=== PATIENT | female | born 1990 | race Caucasian/White ===

== ENCOUNTER 2017-02-05 17:03 | Inpatient (IN) | payer OTHER ==
[2017-02-05 19:51] VITALS: BMI 26.7
--- NOTE | 2017-02-05 20:41 | HP ---
CIWA Score - CIWA Score Nausea/Vomitin Muscle Tremors: 4-Moderate,w/Arms Extend Anxiety: 4-Mod. Anxious/Guarded Agitation: 4-Moderately Restless Paroxysmal Sweats: 3 Orientation: 2-Disoriented Date<2 days Tacttile Disturbances: 3-Moderate Itch/Numb/Burn Auditory Disturbances: 1-Very Mild Visual Disturbances: 1-Very Mild Sensitivity Headache: 4-Moderately Severe CIWA-Ar Total Score: 29 Admission ROS BHS - HPI Chief Complaint: C/O WITHDRAWAL SX'S. SEEKING DETOX TXMENT. Allergies/Adverse Reactions: Allergies Allergy/AdvReac Type Severity Reaction Status Date / Time No Known Allergies Allergy Verified 02/05/17 20:36 History of Present Illness: 26 Y.O FEMALE WITH ALCOHOLISM ADMITTED FOR DETOX TXMENT. CLIENT REPORTS THIS IS HER FIRST TIME IN TXMENT. REPORTS LONGEST CLEAN TIME 2 YEARS. Exam Limitations: No Limitations - Ebola screening Have you traveled outside of the country in the last 21 days: No Have you had contact with anyone from an Ebola affected area: No Have you been sick,other than usual withdrawal symptoms: No Do you have a fever: No - Review of Systems Constitutional: Chills, Loss of Appetite, Night Sweats, Changes in sleep EENT: reports: Throat Pain, Other (GRINDS TEETH) Respiratory: reports: No Symptoms reported Cardiac: reports: No Symptoms Reported GI: reports: Nausea, Poor Appetite, Vomiting : reports: Dysuria Musculoskeletal: reports: Neck Pain Integumentary: reports: No Symptoms Reported Neuro: reports: Headache Endocrine: reports: No Symptoms Reported Hematology: reports: No Symptoms Reported Psychiatric: reports: Anxious, Depressed Other Systems: Reviewed and Negative Patient History - Patient Medical History Hx Anemia: No Hx Asthma: No Hx Chronic Obstructive Pulmonary Disease (COPD): No Hx Cancer: No Hx Cardiac Disorders: No Hx Congestive Heart Failure: No Hx Hypertension: No Hx Hypercholesterolemia: No Hx Pacemaker: No HX Cerebrovascular Accident: No Hx Seizures: No Hx Dementia: No Hx Diabetes: No Hx Gastrointestinal Disorders: No Hx Liver Disease: No Hx Genitourinary Disorders: No Hx Sexually Transmitted Disorders: No Hx Renal Disease (ESRD): No Hx Thyroid Disease: No Hx Human Immunodeficiency Virus (HIV): No Hx Hepatitis C: No Hx Depression: Yes (LEXAPRO, KLONOPINS) Hx Suicide Attempt: No Hx Bipolar Disorder: No Hx Schizophrenia: No Other Medical History: DENIES - Patient Surgical History Past Surgical History: No - PPD History Previous Implant?: Yes Documented Results: Negative w/o proof Implanted On Prior [facility] Admission?: No PPD to be Administered?: Yes - Reproductive History Patient is a Female of Child Bearing Age (11 -55 yrs old): Yes LMP comment: AMENORRHEA DUE TO IUD Patient : No (NEG C) - Smoking Cessation Smoking history: Former smoker Have you smoked in the past 12 months: Yes Aproximately how many cigarettes per day: 2 (LAST SMOKED 5 MONTHS AGO) Cigars Per Day: 0 Hx Chewing Tobacco Use: No Initiated information on smoking cessation: Yes 'Breaking Loose' booklet given: 02/05/17 - Substance & Tx. History Hx Alcohol Use: Yes Hx Substance Use: Yes Substance Use Type: Prescribed (KLONOPIN) Hx Substance Use Treatment: No - Substances Abused LIQUOR Route: Oral Frequency: Daily Amount used: 1 PINT Age of first use: 16 Date of Last Use: 02/04/17 KLONOPIN Route: Oral Frequency: Daily Amount used: 1.5 MG Age of first use: 24 Date of Last Use: 02/02/17 Family Disease History - Family Disease History Family Disease History: Diabetes: Mother ( [place], CVA), Heart Disease: Father (CVA, HTN), Mother, Other: Father, Brother (ALCOHOLISM) Admission Physical Exam BHS - Vital Signs Vital Signs: Vital Signs - 24 hr 02/05/17 19:48 Temperature 99.1 F Pulse Rate 63 Respiratory 18 Rate Blood Pressure 143/101 - Physical General Appearance: Yes: Mild Distress, Tremorous, Sweating, Anxious HEENTM: Yes: Within Normal Limits Respiratory: Yes: Chest Non-Tender, Lungs Clear, Normal Breath Sounds, No Respiratory Distress, No Accessory Muscle Use Neck: Yes: No masses,lesions,Nodules, Supple, Trachea in good position Breast: Yes: Breast Exam Deferred Cardiology: Yes: Regular Rhythm, Regular Rate, S1, S2 Abdominal: Yes: Normal Bowel Sounds, Non Tender, Soft Genitourinary: Yes: Within Normal Limits Back: Yes: Normal Inspection Musculoskeletal: Yes: full range of Motion, Gait Steady Extremities: Yes: Normal Capillary Refill, Normal Range of Motion, Non-Tender, Tremors Neurological: Yes: Alert, Disoriented Integumentary: Yes: Clammy Lymphatic: Yes: Within Normal Limits - Diagnostic (1) Alcohol dependence with uncomplicated withdrawal Current Visit: Yes Status: Chronic Cleared for Admission [facility] - Detox or Rehab [facility] Level of Care: Medically Managed Detox Regimen/Protocol: Librium [facility] Breath Alcohol Content Breath Alcohol Content: 0 Urine Drug Screen - Results Urine Drug Screen Results: BZO-Benzodiazepines
[2017-02-05] MEDS ORDERED: MENTHOL/PHENOL 1 EACH UD MM PRN (20:59)
[2017-02-05] MEDS ORDERED: MAG HYDROX/AL HYDROX/SIMETH 30 ML UNIT-DOSE CUP PO PRN (20:59)
[2017-02-05] MEDS ORDERED: MAGNESIUM HYDROX 2400MG/30ML ORAL SUSPENSION 30 ML CUP PO PRN (20:59)
[2017-02-05] MEDS ORDERED: P-EPHED 60MG/TRIPROLIDI 2.5MG TABLET PO PRN (20:59)
[2017-02-05] MEDS ORDERED: MAGNESIUM CITRATE 300 ML BOTTLE PO PRN (20:59)
[2017-02-05] MEDS ORDERED: guaiFENesin/D-METHORPHAN HB 10 ML UNIT-DOSE CUPS PO PRN (20:59)
[2017-02-05] MEDS ORDERED: ACETAMINOPHEN 325 MG TABLET (FP) PO PRN (20:59)
[2017-02-05] MEDS ORDERED: LOPERAMIDE HCL 2 MG CAPSULE PO PRN (20:59)
[2017-02-05] MEDS ORDERED: NICOTINE POLACRILEX 2 MG GUM BC PRN (20:59)
[2017-02-05] MEDS: diphenhydrAMINE HCL 50 MG CAPSULE PO PRN (23:11)
[2017-02-05] MEDS: THIAMINE HCL 100 MG TABLET (FP) PO SCH (23:11)
[2017-02-05] MEDS: chlordiazePOXIDE HCL 25 MG CAPSULE PO SCH (23:16)
[2017-02-06] MEDS: chlordiazePOXIDE HCL 25 MG CAPSULE PO PRN ×2 (01:33→14:44)
[2017-02-06] MEDS: chlordiazePOXIDE HCL 25 MG CAPSULE PO SCH ×4 (05:56→22:28)
[2017-02-06] MEDS: IBUPROFEN 400 MG TABLET (FP) PO PRN ×2 (05:57→10:41)
[2017-02-06 10:00] LABS: URINE APPEARANCE SLCLOUDY; URINE BILIRUBIN NEGATIVE (NEGATIVE); URINE COLOR YELLOW; URINE GLUCOSE (UA) NEGATIVE (NEGATIVE); URINE KETONE NEGATIVE (NEGATIVE); URINE NITRITE POSITIVE (NEGATIVE); URINE PROTEIN NEGATIVE (NEGATIVE); URINE UROBILINOGEN NEGATIVE E.U./dl (0.2-1.0)
[2017-02-06 10:05] LABS: MCH 33.4 pg (25.7-33.7); MCHC 33.5 g/dl (32.0-36.0); MEAN CELL VOLUME 99.6 fl (80-96); MEAN PLT VOLUME 9.5 fl (7.5-11.1); PLATELET COUNT 125 K/MM3 (134-434); RDW 12.5 % (11.6-15.6); WHITE BLOOD COUNT 6.3 K/mm3 (4.0-10.0)
[2017-02-06 10:08] LABS: URINE BLOOD 2+ (NEGATIVE); URINE LEUK ESTERASE 1+ (NEGATIVE)
--- NOTE | 2017-02-06 10:15 | CONSULT ---
[facility] Psychiatric Consult - Data Date of interview: 02/06/17 Admission source: [facility] Identifying data: First admission to [facility] for this 26 y/o female seeking detox treatment,on ,for alcohol and benzodiazepine (klonopin) dependence.Patient is ,a mother of one,domiciled,unemployed and supported by relatives. Substance Abuse History: Smoking Cessation. Smoking history: Former smoker. Have you smoked in the past 12 months: Yes. Aproximately how many cigarettes per day: 2 (LAST SMOKED 5 MONTHS AGO). Cigars Per Day: 0. Hx Chewing Tobacco Use: No. Initiated information on smoking cessation: Yes. 'Breaking Loose' booklet given: 02/05/17. - Substance & Tx. History. Hx Alcohol Use: Yes. Hx Substance Use: Yes. Substance Use Type: Prescribed (KLONOPIN). Hx Substance Use Treatment: No. - Substances Abused. LIQUOR. Route: Oral. Frequency: Daily. Amount used: 1 PINT. Age of first use: 16. Date of Last Use: . KLONOPIN. Route: Oral. Frequency: Daily. Amount used: 1.5 MG. Age of first use: 24. Date of Last Use: 02/02/17. Confirmed by patient. Medical History: Patient endorses good general health. Psychiatric History: No reported history of psychiatric hospitalizations.Diagnosed with Anxiety Disorder and MDD.The patient gets her psychiatric OPD services at the [facility].Prescribed lexapro 10 mg po daily and klonopin (undisclosed dose).Ms Welch denies history of suicide attempts. Physical/Sexual Abuse/Trauma History: Patient denies. Additional Comment: Urine Drug Screen Results: BZO-Benzodiazepines.Noted. Mental Status Exam - Mental Status Exam Alert and Oriented to: Time, Place, Person Cognitive Function: Good Patient Appearance: Well Groomed Mood: Withdrawn, Anxious, Apprehensive Affect: Mood Congruent Patient Behavior: Fatigued, Appropriate, Cooperative Speech Pattern: Clear Voice Loudness: Normal Thought Process: Goal Oriented Thought Disorder: Not Present Hallucinations: Denies Suicidal Ideation: Denies Homicidal Ideation: Denies Insight/Judgement: Poor Sleep: Poorly, Difficulty falling asleep (wants trazodone added to her regimen) Appetite: Good Muscle strength/Tone: Normal Gait/Station: Normal Psychiatric Findings - Problem List ([place] 1, 2,3) (1) Alcohol dependence with uncomplicated withdrawal Current Visit: Yes Status: Acute (2) Alcohol-induced mood disorder Current Visit: Yes Status: Suspected (3) Anxiety disorder Current Visit: Yes Status: Chronic (4) Depressive disorder Current Visit: Yes Status: Chronic (5) Insomnia Current Visit: Yes Status: Acute - Initial Treatment Plan Initial Treatment Plan: Psychoeducation.Detoxification.Medications : lexapro 10 mg po daily + trazodone 50 mg po hs.Side effects/benefits of both medications are discussed with patient.She consents (verbally) to this careplan.Observation.
[2017-02-06 10:21] LABS: ALBUMIN 3.3 g/dl (3.4-5.0); ALK PHOS 72 U/L (45-117); ANION GAP 10 (8-16); BILIRUBIN,TOTAL 0.4 mg/dL (0.2-1.0); CO2 29 mmol/L (21-32); CREATININE 0.8 mg/dL (0.55-1.02); GLUCOSE,RANDOM 82 mg/dL (74-106); SGOT/AST 25 U/L (15-37); SGPT/ALT 36 U/L (12-78); TOT PROT 5.9 g/dl (6.4-8.2)
[2017-02-06] MEDS: PRENATAL VITAMINS W/ FOLIC ACID TABLET (FP) PO SCH (10:38)
[2017-02-06 11:11] LABS: URINE BACTERIA MANY /hpf (NONE SEEN); URINE MUCUS MANY; URINE RBC 15 /hpf (0-3); URINE WBC 62 /hpf (3-5)
--- NOTE | 2017-02-06 11:37 | PN ---
BHS COWS - Scale Resting Pulse: 0= IN 80 or Below Sweatin=Flushed/Facial Moisture Restless Observation: 1= Difficult to Sit Still Pupil Size: 1= Pupils >than Normal Bone or Joint Aches: 2= Severe Diffuse Aches Runny Nose/ Eye Tearin= Nasal Congestion GI Upset > 30mins: 1= Stomach Cramp Tremor Observation of Outstretched Hands: 1= Tremor [place], Not Seen Yawning Observation: 1= 1-2x During Session Anxiety or Irritability: 2=Irritable/Anxious Goose Flesh Skin: 0=Smooth Skin COWS Score: 12 S Progress Note (SOAP) Subjective: interrupted sleep, sweats, diarrhea, lbp Objective: 02/06/17 11:35 Vital Signs Temperature 98.1 F 02/06/17 06:00 Pulse Rate 65 02/06/17 06:00 Respiratory Rate 18 02/06/17 06:00 Blood Pressure 135/84 02/06/17 06:00 O2 Sat by Pulse Oximetry (%) Laboratory Tests 02/06/17 02/06/17 02/06/17 07:00 07:00 07:00 WBC 6.3 RBC 3.71 Hgb 12.4 Hct 36.9 MCV 99.6 H MCHC 33.5 RDW 12.5 Plt Count 125 L MPV 9.5 Sodium 145 Potassium 4.0 Chloride 106 Carbon Dioxide 29 Anion Gap 10 BUN 14 Creatinine 0.8 Creat Clearance w eGFR > 60 Random Glucose 82 Calcium 9.0 Total Bilirubin 0.4 AST 25 ALT 36 Alkaline Phosphatase 72 Total Protein 5.9 L Albumin 3.3 L Urine Color Yellow Urine Appearance Slcloudy Urine pH 6.0 Ur Specific [place] 1.023 Urine Protein Negative Urine Glucose (UA) Negative Urine Ketones Negative Urine Blood 2+ H Urine Nitrite Positive Urine Bilirubin Negative Urine Urobilinogen Negative Ur Leukocyte Esterase 1+ H Urine RBC 15 Urine WBC 62 Ur Epithelial Cells Rare Urine Bacteria Many Urine Mucus Many pt aox3 lying in bed oral no erythema or exudates 02/06/17 15:01 02/06/17 15:02 Assessment: 02/06/17 11:36 withdrawal sx;s abn u/a r/o uti sorethroat 02/06/17 15:01 Plan: cont detox increase fluids repeat u/a, cx motrin prn imodium prn
[2017-02-06] MEDS: cloNIDine HCL 0.1 MG TABLET PO PRN ×2 (14:44→22:30)
[2017-02-06 18:14] LABS: URINE APPEARANCE CLEAR; URINE BILIRUBIN NEGATIVE (NEGATIVE); URINE COLOR STRAW; URINE GLUCOSE (UA) NEGATIVE (NEGATIVE); URINE KETONE NEGATIVE (NEGATIVE); URINE LEUK ESTERASE NEGATIVE (NEGATIVE); URINE NITRITE NEGATIVE (NEGATIVE); URINE PROTEIN NEGATIVE (NEGATIVE); URINE UROBILINOGEN NEGATIVE E.U./dl (0.2-1.0)
[2017-02-06 19:24] LABS: URINE BLOOD 1+ (NEGATIVE)
[2017-02-06 21:47] LABS: URINE BACTERIA RARE /hpf (NONE SEEN); URINE MUCUS RARE; URINE RBC 1 /hpf (0-3); URINE WBC <1 /hpf (3-5)
[2017-02-06] MEDS ORDERED: traZODone HCL 50 MG TABLET (FP) PO SCH (22:00)
[2017-02-06] MEDS: THIAMINE HCL 100 MG TABLET (FP) PO SCH (22:29)
--- NOTE | 2017-02-06 23:07 | EKG ---
Test Reason : Blood Pressure : / mmHG Vent. Rate : 056 BPM Atrial Rate : 056 BPM P-R Int : 138 ms QRS Dur : 080 ms QT Int : 422 ms P-R-T Axes : 027 046 038 degrees QTc Int : 407 ms SINUS BRADYCARDIA OTHERWISE NORMAL ECG NO PREVIOUS ECGS AVAILABLE Confirmed by CARYN BARNES MD ([id number]) on 02/06/2017 11:07:04 PM Referred By: Tarik Gomez Confirmed By:CARYN BARNES MD
[2017-02-07] MEDS: chlordiazePOXIDE HCL 25 MG CAPSULE PO PRN (03:02)
[2017-02-07] MEDS: chlordiazePOXIDE HCL 25 MG CAPSULE PO SCH ×3 (05:45→17:46)
[2017-02-07] MEDS: cloNIDine HCL 0.1 MG TABLET PO PRN (05:46)
[2017-02-07] MEDS: hydrOXYzine PAMOATE 50 MG CAPSULE (FP) PO PRN ×2 (09:46→17:47)
--- NOTE | 2017-02-07 09:48 | PN ---
Psychiatric Progress Note Vital Signs: Vital Signs Period Temp Pulse Resp BP Sys/Reich Pulse Ox Last 24 Hr 97.9 F-99.0 F 70-79 16-18 107-140/58-87 Date of Session: 02/07/17 Chief Complaint:: Insomnia , anxiety HPI: Patient reprots anxiety and Insomnia Current Medications: Active Medications Generic Name Dose Route Start Last Admin Trade Name Freq PRN Reason Stop Dose Admin Acetaminophen 650 mg 02/05/17 20:59 02/06/17 01:33 Tylenol - PO 650 mg Q4H PRN Administration FEVER OR PAIN Al Hydroxide/Mg Hydroxide 30 ml 02/05/17 20:59 Mylanta Oral Suspension - PO Q6H PRN DYSPEPSIA Chlordiazepoxide HCl 10 mg 02/08/17 23:00 Librium - PO 02/09/17 17:01 [id number] RAMBO Chlordiazepoxide HCl 25 mg 02/05/17 20:59 02/07/17 03:02 Librium - PO 02/08/17 20:58 25 mg Q4H PRN Administration WITHDRAWAL(CONT SUBST) Chlordiazepoxide HCl 25 mg 02/06/17 23:00 02/07/17 05:45 Librium - PO 02/07/17 17:01 25 mg [id number] RAMBO Administration Chlordiazepoxide HCl 15 mg 02/07/17 23:00 Librium - PO 02/08/17 17:01 [id number] RAMBO Clonidine 0.1 mg 02/05/17 21:01 02/07/17 05:46 Catapres - PO 0.1 mg Q8H PRN Administration WITHDRAWAL(CONT SUBST) Diphenhydramine HCl 50 mg 02/05/17 20:59 02/05/17 23:11 Benadryl - PO 50 mg HSMR1 PRN Administration INSOMNIA Escitalopram Oxalate 10 mg 02/07/17 10:00 Lexapro - PO DAILY RAMBO Eucalyptus/Menthol/Phenol/Sorbitol 1 each 02/05/17 20:59 02/06/17 10:41 Cepastat Lozenge - MM 1 each Q4H PRN Administration SORE THROAT Guaifenesin 10 ml 02/05/17 20:59 Robitussin Dm - PO Q6H PRN COUGH Hydroxyzine Pamoate 50 mg 02/05/17 20:59 Vistaril - PO Q4H PRN AGITATION Ibuprofen 400 mg 02/05/17 20:59 02/06/17 10:41 Motrin - PO 400 mg Q6H PRN Administration SEVERE PAIN Loperamide HCl 4 mg 02/05/17 20:59 Imodium - PO Q6H PRN DIARRHEA Magnesium Citrate 300 ml 02/05/17 20:59 Citroma - PO Q48H PRN CONSTIPATION Magnesium Hydroxide 30 ml 02/05/17 20:59 Milk Of Magnesia - PO DAILY PRN CONSTIPATION Nicotine Polacrilex 2 mg 02/05/17 20:59 Nicorette Gum - BC Q2H PRN NICOTINE REPLACEMENT RX Multivit/Folic Acid/Iron 1 tab 02/06/17 10:00 02/06/17 10:38 Vitamins (Sjr) - PO 1 tab DAILY RAMBO Administration Pseudoephedrine/Triprolidine 1 combo 02/05/17 20:59 Actifed - PO TID PRN NASAL CONGESTION Thiamine HCl 100 mg 02/05/17 22:00 02/06/17 22:29 Vitamin B1 - PO 100 mg HS RAMBO Administration Medication(s) Change(s): Trazodone to 100mg po qhs Provider note:: Patient instructed how to use PRN medications for anxoety. Current order is Vistaril 50mg po q4 for anxiety Mental Status Exam - Mental Status Exam Alert and Oriented to: Person Cognitive Function: Fair Patient Appearance: Well Groomed Mood: Anxious Affect: Flat Patient Behavior: Cooperative Speech Pattern: Appropriate Voice Loudness: Severely Loud Thought Process: Goal Oriented Thought Disorder: Being Controlled Hallucinations: Denies Suicidal Ideation: Denies Homicidal Ideation: Denies Insight/Judgement: Fair Sleep: Difficulty falling asleep Appetite: Weight gain Muscle strength/Tone: Normal Gait/Station: Normal Additional Comments: Trazodone b100mg po qhs Psychiatric Treatment Plan - Problem List (1) Alcohol dependence with uncomplicated withdrawal Current Visit: Yes (2) Anxiety disorder Current Visit: Yes (3) Depressive disorder Current Visit: Yes (4) Alcohol-induced mood disorder Current Visit: Yes Initial treatment plan: Trazodone b100mg po qhs
[2017-02-07] MEDS: PRENATAL VITAMINS W/ FOLIC ACID TABLET (FP) PO SCH (10:52)
[2017-02-07] MEDS: ESCITALOPRAM OXALATE 10 MG TABLET (FP) PO SCH (10:52)
--- NOTE | 2017-02-07 11:38 | PN ---
BHS COWS - Scale Resting Pulse: 0= [place] 80 or Below Sweatin=Flushed/Facial Moisture Restless Observation: 1= Difficult to Sit Still Pupil Size: 0= Normal to Room Light Bone or Joint Aches: 2= Severe Diffuse Aches Runny Nose/ Eye Tearin= None GI Upset > 30mins: 2= Nausea/Diarrhea Tremor Observation of Outstretched Hands: 2= Slight Tremor Visible Yawning Observation: 1= 1-2x During Session Anxiety or Irritability: 2=Irritable/Anxious Goose Flesh Skin: 0=Smooth Skin COWS Score: 12 BHS Progress Note (SOAP) Subjective: diarrhea sweats shakes interrupted sleep agitation Objective: 02/07/17 11:32 Vital Signs Temperature 99.0 F 02/07/17 09:57 Pulse Rate 72 02/07/17 09:57 Respiratory Rate 18 02/07/17 09:57 Blood Pressure 114/68 02/07/17 09:57 O2 Sat by Pulse Oximetry (%) Laboratory Tests 02/05/17 02/06/17 02/06/17 07:00 07:00 07:00 WBC 6.3 RBC 3.71 Hgb 12.4 Hct 36.9 MCV 99.6 H MCHC 33.5 RDW 12.5 Plt Count 125 L MPV 9.5 Sodium 145 Potassium 4.0 Chloride 106 Carbon Dioxide 29 Anion Gap 10 BUN 14 Creatinine 0.8 Creat Clearance w eGFR > 60 Random Glucose 82 Calcium 9.0 Total Bilirubin 0.4 AST 25 ALT 36 Alkaline Phosphatase 72 Total Protein 5.9 L Albumin 3.3 L Urine Color Urine Appearance Urine pH Ur Specific [place] Urine Protein Urine Glucose (UA) Urine Ketones Urine Blood Urine Nitrite Urine Bilirubin Urine Urobilinogen Ur Leukocyte Esterase Urine RBC Urine WBC Ur Epithelial Cells Urine Bacteria Urine Mucus RPR Titer Hepatitis C Antibody 0.1 02/06/17 02/06/17 02/06/17 07:00 07:00 17:40 WBC RBC Hgb Hct MCV MCHC RDW Plt Count MPV Sodium Potassium Chloride Carbon Dioxide Anion Gap BUN Creatinine Creat Clearance w eGFR Random Glucose Calcium Total Bilirubin AST ALT Alkaline Phosphatase Total Protein Albumin Urine Color Yellow Straw Urine Appearance Slcloudy Clear Urine pH 6.0 6.0 Ur Specific [place] 1.023 1.011 Urine Protein Negative Negative Urine Glucose (UA) Negative Negative Urine Ketones Negative Negative Urine Blood 2+ H 1+ H Urine Nitrite Positive Negative Urine Bilirubin Negative Negative Urine Urobilinogen Negative Negative Ur Leukocyte Esterase 1+ H Negative Urine RBC 15 1 Urine WBC 62 <1 Ur Epithelial Cells Rare Rare Urine Bacteria Many Rare Urine Mucus Many Rare RPR Titer Nonreactive Hepatitis C Antibody u/a micro pending awake/alert ambulating no acute distress no c/o s/s uti Assessment: 02/07/17 11:34 withdrawal sx Plan: continue detox increase fluids
[2017-02-07] MEDS: THIAMINE HCL 100 MG TABLET (FP) PO SCH (22:40)
[2017-02-07] MEDS: traZODone HCL 100 MG TABLET (FP) PO SCH (22:40)
[2017-02-07] MEDS: chlordiazePOXIDE 5 MG CAPSULE PO SCH (22:41)
[2017-02-07] MEDS: diphenhydrAMINE HCL 50 MG CAPSULE PO PRN (22:42)
[2017-02-08] MEDS: chlordiazePOXIDE 5 MG CAPSULE PO SCH ×3 (05:38→17:41)
[2017-02-08] MEDS: PRENATAL VITAMINS W/ FOLIC ACID TABLET (FP) PO SCH (10:49)
[2017-02-08] MEDS: ESCITALOPRAM OXALATE 10 MG TABLET (FP) PO SCH (10:50)
--- NOTE | 2017-02-08 12:03 | PN ---
BHS Progress Note (SOAP) Subjective: interrupted sleep, sweats, shakes , diarrhea improving Objective: 02/08/17 12:02 Vital Signs Temperature 98.2 F 02/08/17 09:44 Pulse Rate 91 H 02/08/17 09:44 Respiratory Rate 20 02/08/17 09:44 Blood Pressure 127/79 02/08/17 09:44 O2 Sat by Pulse Oximetry (%) Laboratory Tests 02/05/17 02/06/17 02/06/17 07:00 07:00 07:00 WBC 6.3 RBC 3.71 Hgb 12.4 Hct 36.9 MCV 99.6 H MCHC 33.5 RDW 12.5 Plt Count 125 L MPV 9.5 Sodium 145 Potassium 4.0 Chloride 106 Carbon Dioxide 29 Anion Gap 10 BUN 14 Creatinine 0.8 Creat Clearance w eGFR > 60 Random Glucose 82 Calcium 9.0 Total Bilirubin 0.4 AST 25 ALT 36 Alkaline Phosphatase 72 Total Protein 5.9 L Albumin 3.3 L Urine Color Urine Appearance Urine pH Ur Specific [place] Urine Protein Urine Glucose (UA) Urine Ketones Urine Blood Urine Nitrite Urine Bilirubin Urine Urobilinogen Ur Leukocyte Esterase Urine RBC Urine WBC Ur Epithelial Cells Urine Bacteria Urine Mucus RPR Titer Hepatitis C Antibody 0.1 02/06/17 02/06/17 02/06/17 07:00 07:00 17:40 WBC RBC Hgb Hct MCV MCHC RDW Plt Count MPV Sodium Potassium Chloride Carbon Dioxide Anion Gap BUN Creatinine Creat Clearance w eGFR Random Glucose Calcium Total Bilirubin AST ALT Alkaline Phosphatase Total Protein Albumin Urine Color Yellow Straw Urine Appearance Slcloudy Clear Urine pH 6.0 6.0 Ur Specific [place] 1.023 1.011 Urine Protein Negative Negative Urine Glucose (UA) Negative Negative Urine Ketones Negative Negative Urine Blood 2+ H 1+ H Urine Nitrite Positive Negative Urine Bilirubin Negative Negative Urine Urobilinogen Negative Negative Ur Leukocyte Esterase 1+ H Negative Urine RBC 15 1 Urine WBC 62 <1 Ur Epithelial Cells Rare Rare Urine Bacteria Many Rare Urine Mucus Many Rare RPR Titer Nonreactive Hepatitis C Antibody 03/08/17 09:15 pt aox3 in nad ambulating Assessment: 02/08/17 12:02 withdrawal sx; s diarrhea improved Plan: cont. detox increase fluids imodium prn
[2017-02-08] MEDS: cloNIDine HCL 0.1 MG TABLET PO PRN (13:27)
[2017-02-08] MEDS: hydrOXYzine PAMOATE 50 MG CAPSULE (FP) PO PRN (13:27)
[2017-02-08] MEDS: chlordiazePOXIDE HCL 25 MG CAPSULE PO PRN (14:21)
[2017-02-08] MEDS: traZODone HCL 100 MG TABLET (FP) PO SCH (22:24)
[2017-02-08] MEDS: THIAMINE HCL 100 MG TABLET (FP) PO SCH (22:24)
[2017-02-08] MEDS: chlordiazePOXIDE HCL 10 MG CAPSULE PO SCH (22:25)
[2017-02-09] MEDS: chlordiazePOXIDE HCL 10 MG CAPSULE PO SCH ×2 (05:40→11:02)
--- NOTE | 2017-02-09 08:46 | DS ---
[facility] Detox Discharge Summary Admission Date: 02/05/17 Discharge Date: 02/09/17 - History Present History: Alcohol Dependence - Physical Exam Results Vital Signs: Vital Signs Temperature 98.4 F 02/09/17 06:48 Pulse Rate 86 02/09/17 06:48 Respiratory Rate 18 02/09/17 06:48 Blood Pressure 100/63 02/09/17 06:48 O2 Sat by Pulse Oximetry (%) - Treatment Hospital Course: Detox Protocol Followed, Detoxed Safely, Responded well, Discharged Condition Good, Rehab Referral Accepted - Medication Discharge Medications: Ambulatory Orders Clonazepam [Klonopin -] 0.5 mg PO TID PRN 02/05/17 Escitalopram Oxalate [Lexapro -] 10 mg PO DAILY 02/05/17 Escitalopram Oxalate [Lexapro -] 10 mg PO DAILY #30 tablet 02/06/17 Trazodone HCl 50 mg PO HS #30 tablet 02/06/17 - Diagnosis (1) Alcohol dependence with uncomplicated withdrawal Current Visit: Yes Status: Chronic (2) Insomnia Current Visit: Yes Status: Acute (3) Anxiety disorder Current Visit: Yes Status: Chronic (4) Depressive disorder Current Visit: Yes Status: Chronic (5) Alcohol-induced mood disorder Current Visit: Yes Status: Suspected - AMA Did Patient Leave Against Medical Advice: No
[2017-02-09] MEDS: ESCITALOPRAM OXALATE 10 MG TABLET (FP) PO SCH (11:02)
[2017-02-09] MEDS: PRENATAL VITAMINS W/ FOLIC ACID TABLET (FP) PO SCH (11:02)
[2017-02-09 11:31] VITALS: BP 136/76; PULSE 106; TEMP 97.2
== END 2017-02-09 12:36 | disposition other institution (70) | DRG 775 ==
LOC: YASAS 17:03 → Y6N 21:04
PROVIDERS: ADMIT Internal Medicine Addiction Medicine; ATTEND Internal Medicine Addiction Medicine
PROC: HZ2ZZZZ Detoxification Services for Substance Abuse Treatment (ICD-10-PCS; principal; 2017-02-09)
DX: F10.230 Alcohol dependence with withdrawal, uncomplicated (principal); F32.9 Major depressive disorder, single episode, unspecified; F10.24 Alcohol dependence with alcohol-induced mood disorder; F41.9 Anxiety disorder, unspecified; G47.00 Insomnia, unspecified
CPT/HCPCS: 36415; 80053; 81003; 81015; 85027; 86593; 87086; 87186; 93005; 93010

== ENCOUNTER 2017-02-09 12:42 | Inpatient (IN) | payer OTHER ==
[2017-02-09] MEDS ORDERED: MAGNESIUM HYDROX 2400MG/30ML ORAL SUSPENSION 30 ML CUP PO PRN (14:22)
[2017-02-09] MEDS ORDERED: MAGNESIUM CITRATE 300 ML BOTTLE PO PRN (14:22)
[2017-02-09] MEDS ORDERED: LOPERAMIDE HCL 2 MG CAPSULE PO PRN (14:22)
[2017-02-09] MEDS ORDERED: MAG HYDROX/AL HYDROX/SIMETH 30 ML UNIT-DOSE CUP PO PRN (14:22)
--- NOTE | 2017-02-09 14:26 | HP ---
[facility] Rehab Assess/Revision - Admission History Admitted to Rehab from: [facility] [address] [place] Date of Admission to Rehab: 02/09/17 - Vital signs Vital Signs: Vital Signs Period Temp Pulse Resp BP Sys/Reich Pulse Ox Last 24 Hr 98.7 F 85 18 119/73 - Findings Detox History & Physical reviewed: Yes Concur with findings: Yes
[2017-02-09] MEDS: traZODone HCL 100 MG TABLET (FP) PO SCH (21:53)
[2017-02-09] MEDS: THIAMINE HCL 100 MG TABLET (FP) PO SCH (21:53)
[2017-02-09] MEDS ORDERED: traZODone HCL 50 MG TABLET (FP) PO SCH (22:00)
[2017-02-10] MEDS: PRENATAL VITAMINS W/ FOLIC ACID TABLET (FP) PO SCH (10:08)
[2017-02-10] MEDS: ESCITALOPRAM OXALATE 10 MG TABLET (FP) PO SCH (10:08)
[2017-02-10] MEDS ORDERED: hydrOXYzine PAMOATE 50 MG CAPSULE (FP) PO PRN (10:29)
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
[2017-02-10] MEDS: hydrOXYzine PAMOATE 50 MG CAPSULE (FP) PO PRN ×2 (11:23→21:22)
[2017-02-10 11:36] LABS: HIV 1 & 2 AB NEGATIVE; HIV 1 AGp24 NEGATIVE
[2017-02-10] MEDS: THIAMINE HCL 100 MG TABLET (FP) PO SCH (21:20)
[2017-02-10] MEDS: traZODone HCL 100 MG TABLET (FP) PO SCH (21:20)
[2017-02-11] MEDS: hydrOXYzine PAMOATE 50 MG CAPSULE (FP) PO PRN ×3 (06:53→21:29)
[2017-02-11] MEDS: ESCITALOPRAM OXALATE 10 MG TABLET (FP) PO SCH (10:15)
[2017-02-11] MEDS: PRENATAL VITAMINS W/ FOLIC ACID TABLET (FP) PO SCH (10:15)
[2017-02-11] MEDS: traZODone HCL 100 MG TABLET (FP) PO SCH (21:29)
[2017-02-11] MEDS: THIAMINE HCL 100 MG TABLET (FP) PO SCH (21:29)
[2017-02-12] MEDS: PRENATAL VITAMINS W/ FOLIC ACID TABLET (FP) PO SCH (10:35)
[2017-02-12] MEDS: hydrOXYzine PAMOATE 50 MG CAPSULE (FP) PO PRN ×2 (10:36→18:59)
[2017-02-12] MEDS: ESCITALOPRAM OXALATE 10 MG TABLET (FP) PO SCH (10:36)
[2017-02-12] MEDS: IBUPROFEN 400 MG TABLET (FP) PO PRN ×2 (14:35→22:56)
[2017-02-12] MEDS: traZODone HCL 100 MG TABLET (FP) PO SCH (21:40)
[2017-02-12] MEDS: THIAMINE HCL 100 MG TABLET (FP) PO SCH (21:40)
[2017-02-12] MEDS: diphenhydrAMINE HCL 50 MG CAPSULE PO PRN (21:41)
[2017-02-13] MEDS: ESCITALOPRAM OXALATE 10 MG TABLET (FP) PO SCH (10:29)
[2017-02-13] MEDS: PRENATAL VITAMINS W/ FOLIC ACID TABLET (FP) PO SCH (10:29)
[2017-02-13] MEDS: hydrOXYzine PAMOATE 50 MG CAPSULE (FP) PO PRN ×2 (10:29→16:06)
[2017-02-13] MEDS: ACETAMINOPHEN 325 MG TABLET (FP) PO PRN ×2 (16:07→22:00)
[2017-02-13] MEDS: THIAMINE HCL 100 MG TABLET (FP) PO SCH (21:59)
[2017-02-13] MEDS: traZODone HCL 100 MG TABLET (FP) PO SCH (21:59)
[2017-02-13] MEDS: diphenhydrAMINE HCL 50 MG CAPSULE PO PRN (21:59)
[2017-02-14] MEDS: ESCITALOPRAM OXALATE 10 MG TABLET (FP) PO SCH (10:26)
[2017-02-14] MEDS: PRENATAL VITAMINS W/ FOLIC ACID TABLET (FP) PO SCH (10:26)
[2017-02-14] MEDS: hydrOXYzine PAMOATE 50 MG CAPSULE (FP) PO PRN ×2 (10:27→15:48)
[2017-02-14] MEDS: ACETAMINOPHEN 325 MG TABLET (FP) PO PRN (10:27)
[2017-02-14] MEDS: IBUPROFEN 400 MG TABLET (FP) PO PRN ×2 (14:34→21:54)
[2017-02-14] MEDS: traZODone HCL 100 MG TABLET (FP) PO SCH (21:53)
[2017-02-14] MEDS: THIAMINE HCL 100 MG TABLET (FP) PO SCH (21:53)
[2017-02-14] MEDS: diphenhydrAMINE HCL 50 MG CAPSULE PO PRN (21:53)
[2017-02-15] MEDS: PRENATAL VITAMINS W/ FOLIC ACID TABLET (FP) PO SCH (10:32)
[2017-02-15] MEDS: ESCITALOPRAM OXALATE 10 MG TABLET (FP) PO SCH (10:33)
[2017-02-15] MEDS: IBUPROFEN 400 MG TABLET (FP) PO PRN (10:34)
[2017-02-15] MEDS: hydrOXYzine PAMOATE 50 MG CAPSULE (FP) PO PRN (10:34)
[2017-02-15] MEDS: THIAMINE HCL 100 MG TABLET (FP) PO SCH (21:48)
[2017-02-15] MEDS: diphenhydrAMINE HCL 50 MG CAPSULE PO PRN (21:48)
[2017-02-15] MEDS: traZODone HCL 100 MG TABLET (FP) PO SCH (22:30)
[2017-02-16] MEDS: IBUPROFEN 400 MG TABLET (FP) PO PRN ×2 (06:13→17:37)
[2017-02-16] MEDS: MENTHOL/PHENOL 1 EACH UD MM PRN (06:15)
[2017-02-16] MEDS: hydrOXYzine PAMOATE 50 MG CAPSULE (FP) PO PRN ×2 (08:56→17:37)
[2017-02-16] MEDS: PRENATAL VITAMINS W/ FOLIC ACID TABLET (FP) PO SCH (10:51)
[2017-02-16] MEDS: ESCITALOPRAM OXALATE 10 MG TABLET (FP) PO SCH (10:51)
--- NOTE | 2017-02-16 14:54 | PN ---
Psychiatric Progress Note Vital Signs: Vital Signs Period Temp Pulse Resp BP Sys/Reich Pulse Ox Last 24 Hr 98.6 F 77 18-18 121/85 Date of Session: 02/16/17 Chief Complaint:: Eric still anxious and depressed,sleep is still very interrupted." HPI: Patient addressed Alcohol dependence comorbid with Alcohol induced mood disorder. Current Medications: Active Medications Generic Name Dose Route Start Last Admin Trade Name Freq PRN Reason Stop Dose Admin Acetaminophen 650 mg 02/09/17 14:22 02/14/17 10:27 Tylenol - PO 650 mg Q4H PRN Administration FEVER OR PAIN Al Hydroxide/Mg Hydroxide 30 ml 02/09/17 14:22 Mylanta Oral Suspension - PO Q6H PRN DYSPEPSIA Diphenhydramine HCl 50 mg 02/09/17 14:22 02/15/17 21:48 Benadryl - PO 50 mg HSMR1 PRN Administration FOR ITCHING Escitalopram Oxalate 15 mg 02/17/17 10:00 Lexapro - PO DAILY RAMBO Eucalyptus/Menthol/Phenol/Sorbitol 1 each 02/09/17 14:22 02/16/17 06:15 Cepastat Lozenge - MM 1 each Q4H PRN Administration SORE THROAT Guaifenesin 10 ml 02/09/17 14:22 Robitussin Dm - PO Q6H PRN COUGH Hydroxyzine Pamoate 50 mg 02/10/17 11:10 02/16/17 08:56 Vistaril - PO 50 mg Q6H PRN Administration FOR ITCHING Ibuprofen 400 mg 02/09/17 14:22 02/16/17 06:13 Motrin - PO 400 mg Q6H PRN Administration PAIN Loperamide HCl 4 mg 02/09/17 14:22 Imodium - PO Q6H PRN DIARRHEA Magnesium Hydroxide 30 ml 02/09/17 14:22 Milk Of Magnesia - PO DAILY PRN CONSTIPATION Multivit/Folic Acid/Iron 1 tab 02/10/17 10:00 02/16/17 10:51 Vitamins (Sjr) - PO 1 tab DAILY RAMBO Administration Pseudoephedrine/Triprolidine 1 combo 02/09/17 14:22 Actifed - PO TID PRN NASAL CONGESTION Thiamine HCl 100 mg 02/09/17 22:00 02/15/17 21:48 Vitamin B1 - PO 100 mg HS RAMBO Administration Trazodone HCl 150 mg 02/16/17 22:00 Desyrel - PO HS RAMBO Current Side Effect: No Lab tests ordered: No Lab tests reviewed: Yes Provider note:: Chart was revuewed,Attending admission notes appreciated and patient was seen.She addressed ongoing sleeping difficulties and depressed mood with anxiety.Properties of Trazodone and Lexapro has been discussed with the patient including side effects and benefits as well as dose adjustment. Trazodone 100 mg po hs will be adjusted to 150 mg po hs and Lexapro 10 mg po daily will be adjusted to 15 mg po daily. Supportive therapy provided. Total face to face time:: 30 Mental Status Exam - Mental Status Exam Alert and Oriented to: Time, Place, Person Cognitive Function: Grossly Intact Patient Appearance: Well Groomed Mood: Sad, Anxious Affect: Mood Congruent, Labile Patient Behavior: Cooperative Speech Pattern: Clear Voice Loudness: Normal Thought Process: Goal Oriented Thought Disorder: Not Present Hallucinations: Denies Suicidal Ideation: Denies Homicidal Ideation: Denies Insight/Judgement: Fair Sleep: Difficulty falling asleep Appetite: Good Muscle strength/Tone: Normal Gait/Station: Normal Psychiatric Treatment Plan - Problem List (1) Alcohol dependence Current Visit: Yes (2) Alcohol-induced mood disorder Current Visit: Yes
[2017-02-16] MEDS: THIAMINE HCL 100 MG TABLET (FP) PO SCH (22:03)
[2017-02-16] MEDS: traZODone HCL 50 MG TABLET (FP) PO SCH (22:03)
[2017-02-16] MEDS: diphenhydrAMINE HCL 50 MG CAPSULE PO PRN (22:04)
[2017-02-16] MEDS ORDERED: PT OWN MED DRAWER 7, Y5N ONE (22:48)
[2017-02-17] MEDS: guaiFENesin/D-METHORPHAN HB 10 ML UNIT-DOSE CUPS PO PRN (06:54)
[2017-02-17] MEDS: MENTHOL/PHENOL 1 EACH UD MM PRN ×2 (06:55→11:52)
[2017-02-17] MEDS: ACETAMINOPHEN 325 MG TABLET (FP) PO PRN (06:55)
[2017-02-17] MEDS: PRENATAL VITAMINS W/ FOLIC ACID TABLET (FP) PO SCH (10:20)
[2017-02-17] MEDS: ESCITALOPRAM OXALATE 10 MG TABLET (FP) PO SCH (10:21)
[2017-02-17] MEDS: hydrOXYzine PAMOATE 50 MG CAPSULE (FP) PO PRN ×2 (10:22→18:06)
[2017-02-17] MEDS: IBUPROFEN 400 MG TABLET (FP) PO PRN (18:07)
[2017-02-17] MEDS: traZODone HCL 50 MG TABLET (FP) PO SCH (21:57)
[2017-02-17] MEDS: THIAMINE HCL 100 MG TABLET (FP) PO SCH (21:57)
[2017-02-17] MEDS: diphenhydrAMINE HCL 50 MG CAPSULE PO PRN (21:57)
[2017-02-18] MEDS: hydrOXYzine PAMOATE 50 MG CAPSULE (FP) PO PRN ×2 (06:49→15:40)
[2017-02-18] MEDS: ACETAMINOPHEN 325 MG TABLET (FP) PO PRN (06:49)
[2017-02-18] MEDS: P-EPHED 60MG/TRIPROLIDI 2.5MG TABLET PO PRN ×2 (06:49→22:03)
[2017-02-18] MEDS: ESCITALOPRAM OXALATE 10 MG TABLET (FP) PO SCH (10:23)
[2017-02-18] MEDS: PRENATAL VITAMINS W/ FOLIC ACID TABLET (FP) PO SCH (10:23)
[2017-02-18] MEDS: IBUPROFEN 400 MG TABLET (FP) PO PRN (18:44)
[2017-02-18] MEDS: MENTHOL/PHENOL 1 EACH UD MM PRN (18:45)
[2017-02-18] MEDS: diphenhydrAMINE HCL 50 MG CAPSULE PO PRN (22:00)
[2017-02-18] MEDS: THIAMINE HCL 100 MG TABLET (FP) PO SCH (22:00)
[2017-02-18] MEDS: traZODone HCL 50 MG TABLET (FP) PO SCH (22:00)
[2017-02-19] MEDS: P-EPHED 60MG/TRIPROLIDI 2.5MG TABLET PO PRN ×2 (06:50→22:02)
[2017-02-19] MEDS: IBUPROFEN 400 MG TABLET (FP) PO PRN (06:51)
[2017-02-19] MEDS: MENTHOL/PHENOL 1 EACH UD MM PRN (06:52)
[2017-02-19] MEDS: ESCITALOPRAM OXALATE 10 MG TABLET (FP) PO SCH (10:27)
[2017-02-19] MEDS: PRENATAL VITAMINS W/ FOLIC ACID TABLET (FP) PO SCH (10:27)
[2017-02-19] MEDS: hydrOXYzine PAMOATE 50 MG CAPSULE (FP) PO PRN (10:28)
[2017-02-19] MEDS: ACETAMINOPHEN 325 MG TABLET (FP) PO PRN (14:31)
[2017-02-19] MEDS: guaiFENesin/D-METHORPHAN HB 10 ML UNIT-DOSE CUPS PO PRN (14:31)
[2017-02-19] MEDS: diphenhydrAMINE HCL 50 MG CAPSULE PO PRN (21:59)
[2017-02-19] MEDS: THIAMINE HCL 100 MG TABLET (FP) PO SCH (21:59)
[2017-02-19] MEDS: traZODone HCL 50 MG TABLET (FP) PO SCH (22:00)
[2017-02-20] MEDS: ESCITALOPRAM OXALATE 10 MG TABLET (FP) PO SCH (10:49)
[2017-02-20] MEDS: PRENATAL VITAMINS W/ FOLIC ACID TABLET (FP) PO SCH (10:49)
[2017-02-20] MEDS: P-EPHED 60MG/TRIPROLIDI 2.5MG TABLET PO PRN ×2 (10:50→23:01)
[2017-02-20] MEDS: hydrOXYzine PAMOATE 50 MG CAPSULE (FP) PO PRN (10:50)
[2017-02-20] MEDS ORDERED: LIDOCAINE VISCOUS 2% ORAL/TOP 20 ML UNIT-DOSE CUP MM PRN (14:27)
--- NOTE | 2017-02-20 14:30 | PN ---
[facility] Progress Note Note: c/o sore throat Vital Signs - 8 hr 02/20/ 06:58 Temperature 98.6 F Pulse Rate 78 Respiratory 14 Rate Blood Pressure 117/81 Throat : Hyperemic posterior fossa, no exudate Viscous Lidocaine Peridex gargle
[2017-02-20] MEDS: CHLORHEXIDINE GLUCONATE 0.12% 15ML CUP MM SCH (21:55)
[2017-02-20] MEDS: traZODone HCL 50 MG TABLET (FP) PO SCH (21:55)
[2017-02-20] MEDS: THIAMINE HCL 100 MG TABLET (FP) PO SCH (21:56)
[2017-02-20] MEDS: IBUPROFEN 400 MG TABLET (FP) PO PRN (22:00)
[2017-02-20] MEDS: MENTHOL/PHENOL 1 EACH UD MM PRN (22:02)
[2017-02-21] MEDS: hydrOXYzine PAMOATE 50 MG CAPSULE (FP) PO PRN ×3 (06:24→18:56)
[2017-02-21] MEDS: P-EPHED 60MG/TRIPROLIDI 2.5MG TABLET PO PRN (06:24)
[2017-02-21] MEDS ORDERED: PT OWN MED DRAWER 7, Y5N ONE (08:42)
[2017-02-21] MEDS: ESCITALOPRAM OXALATE 10 MG TABLET (FP) PO SCH (10:33)
[2017-02-21] MEDS: PRENATAL VITAMINS W/ FOLIC ACID TABLET (FP) PO SCH (10:33)
[2017-02-21] MEDS: CHLORHEXIDINE GLUCONATE 0.12% 15ML CUP MM SCH ×2 (10:34→21:52)
--- NOTE | 2017-02-21 15:02 | PN ---
Psychiatric Progress Note Vital Signs: Vital Signs Period Temp Pulse Resp BP Sys/Reich Pulse Ox Last 24 Hr 98.2 F 73 18-18 124/88 Date of Session: 02/21/17 Chief Complaint:: progress update. HPI: Patient addressed Alcohol dependence comorbid with alcohol induced mood disorder. ROS: unremarkable Current Medications: Active Medications Generic Name Dose Route Start Last Admin Trade Name Freq PRN Reason Stop Dose Admin Acamprosate 666 mg 02/21/17 15:00 Campral - PO TID RAMBO Acetaminophen 650 mg 02/09/17 14:22 02/19/17 14:31 Tylenol - PO 650 mg Q4H PRN Administration FEVER OR PAIN Al Hydroxide/Mg Hydroxide 30 ml 02/09/17 14:22 Mylanta Oral Suspension - PO Q6H PRN DYSPEPSIA Chlorhexidine Gluconate 15 ml 02/20/17 22:00 02/21/17 10:34 Peridex - MM 15 ml BID RAMBO Administration Diphenhydramine HCl 50 mg 02/09/17 14:22 02/19/17 21:59 Benadryl - PO 50 mg HSMR1 PRN Administration FOR ITCHING Escitalopram Oxalate 15 mg 02/17/17 10:00 02/21/17 10:33 Lexapro - PO 15 mg DAILY RAMBO Administration Eucalyptus/Menthol/Phenol/Sorbitol 1 each 02/09/17 14:22 02/20/17 22:02 Cepastat Lozenge - MM 1 each Q4H PRN Administration SORE THROAT Guaifenesin 10 ml 02/09/17 14:22 02/19/17 14:31 Robitussin Dm - PO 10 ml Q6H PRN Administration COUGH Hydroxyzine Pamoate 50 mg 02/10/17 11:10 02/21/17 13:34 Vistaril - PO 50 mg Q6H PRN Administration FOR ITCHING Ibuprofen 400 mg 02/09/17 14:22 02/20/17 22:00 Motrin - PO 400 mg Q6H PRN Administration PAIN Lidocaine HCl 20 ml 02/20/17 14:27 Xylocaine 2% Viscous Oral - MM Q4HPO PRN ORAL PAIN/MOUTH SORES Loperamide HCl 4 mg 02/09/17 14:22 Imodium - PO Q6H PRN DIARRHEA Magnesium Hydroxide 30 ml 05/05/17 14:22 Milk Of Magnesia - PO DAILY PRN CONSTIPATION Multivit/Folic Acid/Iron 1 tab 02/10/17 10:00 02/21/17 10:33 Vitamins (Sjr) - PO 1 tab DAILY RAMBO Administration Pseudoephedrine/Triprolidine 1 combo 02/09/17 14:22 02/21/17 06:24 Actifed - PO 1 combo TID PRN Administration NASAL CONGESTION Thiamine HCl 100 mg 02/09/17 22:00 02/20/17 21:56 Vitamin B1 - PO 100 mg HS RAMBO Administration Trazodone HCl 150 mg 02/16/17 22:00 02/20/17 21:55 Desyrel - PO 150 mg HS RAMBO Administration Current Side Effect: No Lab tests ordered: No Lab tests reviewed: Yes Provider note:: Chart was revuewed,patient was seen in my office.Treatment plan including medication management has been discussed with the patient .patient reports good response to Trazodone 150 mg po hs and Lexapro 15 mg po daily.properties of campral has been discussed with the patient including side effect profile,benefits.patient is willing to start Campral 333 mg po 2tab po tid today. Supportive therapy provided. Total face to face time:: 30 Mental Status Exam - Mental Status Exam Alert and Oriented to: Time, Place, Person Cognitive Function: Grossly Intact Patient Appearance: Well Groomed Mood: Euthymic Affect: Mood Congruent Patient Behavior: Cooperative Speech Pattern: Clear Voice Loudness: Normal Thought Process: Goal Oriented Thought Disorder: Not Present Hallucinations: Denies Suicidal Ideation: Denies Homicidal Ideation: Denies Insight/Judgement: Fair Sleep: Fair Appetite: Good Muscle strength/Tone: Normal Gait/Station: Normal Psychiatric Treatment Plan - Problem List (1) Alcohol dependence Current Visit: Yes (2) Alcohol-induced mood disorder Current Visit: Yes
[2017-02-21] MEDS: ACAMPROSATE CALCIUM 333 MG TABLET.DR PO SCH ×2 (15:24→21:51)
[2017-02-21] MEDS: diphenhydrAMINE HCL 50 MG CAPSULE PO PRN (21:51)
[2017-02-21] MEDS: traZODone HCL 50 MG TABLET (FP) PO SCH (21:51)
[2017-02-21] MEDS: THIAMINE HCL 100 MG TABLET (FP) PO SCH (21:51)
[2017-02-22] MEDS: ACAMPROSATE CALCIUM 333 MG TABLET.DR PO SCH ×3 (06:29→21:53)
[2017-02-22] MEDS: hydrOXYzine PAMOATE 50 MG CAPSULE (FP) PO PRN ×2 (06:30→13:10)
[2017-02-22] MEDS ORDERED: PT OWN MED DRAWER 7, Y5N ONE (08:35)
[2017-02-22] MEDS: CHLORHEXIDINE GLUCONATE 0.12% 15ML CUP MM SCH ×2 (10:21→22:50)
[2017-02-22] MEDS: PRENATAL VITAMINS W/ FOLIC ACID TABLET (FP) PO SCH (10:22)
[2017-02-22] MEDS: ESCITALOPRAM OXALATE 10 MG TABLET (FP) PO SCH (10:22)
[2017-02-22] MEDS: THIAMINE HCL 100 MG TABLET (FP) PO SCH (21:53)
[2017-02-22] MEDS: traZODone HCL 50 MG TABLET (FP) PO SCH (21:53)
[2017-02-22] MEDS: diphenhydrAMINE HCL 50 MG CAPSULE PO PRN (21:54)
[2017-02-22] MEDS: IBUPROFEN 400 MG TABLET (FP) PO PRN (21:55)
[2017-02-23] MEDS: ACAMPROSATE CALCIUM 333 MG TABLET.DR PO SCH ×3 (06:46→21:33)
[2017-02-23] MEDS ORDERED: PT OWN MED DRAWER 7, Y5N ONE (08:52)
[2017-02-23] MEDS: PRENATAL VITAMINS W/ FOLIC ACID TABLET (FP) PO SCH (10:31)
[2017-02-23] MEDS: CHLORHEXIDINE GLUCONATE 0.12% 15ML CUP MM SCH ×2 (10:31→21:34)
[2017-02-23] MEDS: hydrOXYzine PAMOATE 50 MG CAPSULE (FP) PO PRN ×2 (10:31→17:00)
[2017-02-23] MEDS: ESCITALOPRAM OXALATE 10 MG TABLET (FP) PO SCH (10:31)
[2017-02-23] MEDS: P-EPHED 60MG/TRIPROLIDI 2.5MG TABLET PO PRN (21:32)
[2017-02-23] MEDS: diphenhydrAMINE HCL 50 MG CAPSULE PO PRN (21:33)
[2017-02-23] MEDS: traZODone HCL 50 MG TABLET (FP) PO SCH (21:33)
[2017-02-23] MEDS: THIAMINE HCL 100 MG TABLET (FP) PO SCH (21:35)
[2017-02-24] MEDS: ACAMPROSATE CALCIUM 333 MG TABLET.DR PO SCH ×3 (06:44→21:45)
[2017-02-24] MEDS ORDERED: PT OWN MED DRAWER 7, Y5N ONE (08:48)
[2017-02-24] MEDS: CHLORHEXIDINE GLUCONATE 0.12% 15ML CUP MM SCH ×2 (10:23→21:40)
[2017-02-24] MEDS: PRENATAL VITAMINS W/ FOLIC ACID TABLET (FP) PO SCH (10:23)
[2017-02-24] MEDS: ESCITALOPRAM OXALATE 10 MG TABLET (FP) PO SCH (10:23)
[2017-02-24] MEDS: hydrOXYzine PAMOATE 50 MG CAPSULE (FP) PO PRN (10:23)
[2017-02-24] MEDS: THIAMINE HCL 100 MG TABLET (FP) PO SCH (21:45)
[2017-02-24] MEDS: traZODone HCL 50 MG TABLET (FP) PO SCH (21:45)
[2017-02-25] MEDS: ACAMPROSATE CALCIUM 333 MG TABLET.DR PO SCH ×3 (06:23→21:48)
[2017-02-25] MEDS: CHLORHEXIDINE GLUCONATE 0.12% 15ML CUP MM SCH ×2 (10:05→21:49)
[2017-02-25] MEDS: ESCITALOPRAM OXALATE 10 MG TABLET (FP) PO SCH (10:06)
[2017-02-25] MEDS: PRENATAL VITAMINS W/ FOLIC ACID TABLET (FP) PO SCH (10:06)
[2017-02-25] MEDS: hydrOXYzine PAMOATE 50 MG CAPSULE (FP) PO PRN (10:07)
[2017-02-25] MEDS: THIAMINE HCL 100 MG TABLET (FP) PO SCH (21:48)
[2017-02-25] MEDS: traZODone HCL 50 MG TABLET (FP) PO SCH (21:48)
[2017-02-25] MEDS: diphenhydrAMINE HCL 50 MG CAPSULE PO PRN (21:49)
[2017-02-26] MEDS: CHLORHEXIDINE GLUCONATE 0.12% 15ML CUP MM SCH ×3 (00:45→21:54)
[2017-02-26] MEDS: ACAMPROSATE CALCIUM 333 MG TABLET.DR PO SCH ×3 (06:36→21:53)
[2017-02-26] MEDS ORDERED: PT OWN MED DRAWER 7, Y5N ONE (08:36)
[2017-02-26] MEDS: ESCITALOPRAM OXALATE 10 MG TABLET (FP) PO SCH (10:33)
[2017-02-26] MEDS: PRENATAL VITAMINS W/ FOLIC ACID TABLET (FP) PO SCH (10:33)
[2017-02-26] MEDS: hydrOXYzine PAMOATE 50 MG CAPSULE (FP) PO PRN (10:36)
[2017-02-26] MEDS: diphenhydrAMINE HCL 50 MG CAPSULE PO PRN (21:53)
[2017-02-26] MEDS: traZODone HCL 50 MG TABLET (FP) PO SCH (21:53)
[2017-02-26] MEDS: THIAMINE HCL 100 MG TABLET (FP) PO SCH (21:54)
[2017-02-27] MEDS: ACAMPROSATE CALCIUM 333 MG TABLET.DR PO SCH ×3 (06:41→21:48)
[2017-02-27] MEDS: PRENATAL VITAMINS W/ FOLIC ACID TABLET (FP) PO SCH (10:56)
[2017-02-27] MEDS: ESCITALOPRAM OXALATE 10 MG TABLET (FP) PO SCH (10:57)
[2017-02-27] MEDS: CHLORHEXIDINE GLUCONATE 0.12% 15ML CUP MM SCH (10:57)
[2017-02-27] MEDS: hydrOXYzine PAMOATE 50 MG CAPSULE (FP) PO PRN (10:58)
[2017-02-27] MEDS: traZODone HCL 50 MG TABLET (FP) PO SCH (21:48)
[2017-02-27] MEDS: THIAMINE HCL 100 MG TABLET (FP) PO SCH (21:48)
[2017-02-27] MEDS: diphenhydrAMINE HCL 50 MG CAPSULE PO PRN (21:49)
[2017-02-28] MEDS: ACAMPROSATE CALCIUM 333 MG TABLET.DR PO SCH ×3 (06:35→21:55)
[2017-02-28] MEDS: CHLORHEXIDINE GLUCONATE 0.12% 15ML CUP MM SCH ×2 (10:41→21:56)
[2017-02-28] MEDS: ESCITALOPRAM OXALATE 10 MG TABLET (FP) PO SCH (10:41)
[2017-02-28] MEDS: PRENATAL VITAMINS W/ FOLIC ACID TABLET (FP) PO SCH (10:42)
[2017-02-28] MEDS: hydrOXYzine PAMOATE 50 MG CAPSULE (FP) PO PRN (10:43)
[2017-02-28] MEDS: THIAMINE HCL 100 MG TABLET (FP) PO SCH (21:55)
[2017-02-28] MEDS: traZODone HCL 50 MG TABLET (FP) PO SCH (21:55)
[2017-02-28] MEDS: diphenhydrAMINE HCL 50 MG CAPSULE PO PRN (21:56)
[2017-03-01] MEDS: ACAMPROSATE CALCIUM 333 MG TABLET.DR PO SCH ×3 (06:14→21:56)
[2017-03-01] MEDS: PRENATAL VITAMINS W/ FOLIC ACID TABLET (FP) PO SCH (11:10)
[2017-03-01] MEDS: ESCITALOPRAM OXALATE 10 MG TABLET (FP) PO SCH (11:10)
[2017-03-01] MEDS: CHLORHEXIDINE GLUCONATE 0.12% 15ML CUP MM SCH ×2 (11:11→21:58)
[2017-03-01] MEDS: hydrOXYzine PAMOATE 50 MG CAPSULE (FP) PO PRN (11:11)
[2017-03-01] MEDS: THIAMINE HCL 100 MG TABLET (FP) PO SCH (21:56)
[2017-03-01] MEDS: traZODone HCL 50 MG TABLET (FP) PO SCH (21:57)
[2017-03-01] MEDS: diphenhydrAMINE HCL 50 MG CAPSULE PO PRN (21:57)
[2017-03-02] MEDS: ACAMPROSATE CALCIUM 333 MG TABLET.DR PO SCH ×3 (06:08→22:06)
[2017-03-02] MEDS ORDERED: PT OWN MED DRAWER 7, Y5N ONE ×3 (08:35→20:14)
[2017-03-02] MEDS: PRENATAL VITAMINS W/ FOLIC ACID TABLET (FP) PO SCH (09:15)
[2017-03-02] MEDS: ESCITALOPRAM OXALATE 10 MG TABLET (FP) PO SCH (09:15)
[2017-03-02] MEDS: CHLORHEXIDINE GLUCONATE 0.12% 15ML CUP MM SCH ×2 (09:16→22:05)
[2017-03-02] MEDS: IBUPROFEN 400 MG TABLET (FP) PO PRN (09:16)
[2017-03-02] MEDS: hydrOXYzine PAMOATE 50 MG CAPSULE (FP) PO PRN ×2 (13:23→22:06)
[2017-03-02] MEDS: traZODone HCL 50 MG TABLET (FP) PO SCH (22:06)
[2017-03-02] MEDS: THIAMINE HCL 100 MG TABLET (FP) PO SCH (22:06)
[2017-03-03] MEDS: ACAMPROSATE CALCIUM 333 MG TABLET.DR PO SCH ×3 (07:01→21:48)
[2017-03-03] MEDS: hydrOXYzine PAMOATE 50 MG CAPSULE (FP) PO PRN (10:40)
[2017-03-03] MEDS: ESCITALOPRAM OXALATE 10 MG TABLET (FP) PO SCH (10:40)
[2017-03-03] MEDS: PRENATAL VITAMINS W/ FOLIC ACID TABLET (FP) PO SCH (10:40)
[2017-03-03] MEDS: CHLORHEXIDINE GLUCONATE 0.12% 15ML CUP MM SCH ×2 (10:41→21:50)
[2017-03-03] MEDS: THIAMINE HCL 100 MG TABLET (FP) PO SCH (21:48)
[2017-03-03] MEDS: traZODone HCL 50 MG TABLET (FP) PO SCH (21:48)
[2017-03-03] MEDS: diphenhydrAMINE HCL 50 MG CAPSULE PO PRN (21:49)
[2017-03-04] MEDS: ACAMPROSATE CALCIUM 333 MG TABLET.DR PO SCH ×3 (06:50→21:52)
[2017-03-04] MEDS: ESCITALOPRAM OXALATE 10 MG TABLET (FP) PO SCH (10:29)
[2017-03-04] MEDS: PRENATAL VITAMINS W/ FOLIC ACID TABLET (FP) PO SCH (10:29)
[2017-03-04] MEDS: CHLORHEXIDINE GLUCONATE 0.12% 15ML CUP MM SCH ×2 (10:31→21:53)
[2017-03-04] MEDS: hydrOXYzine PAMOATE 50 MG CAPSULE (FP) PO PRN (13:41)
[2017-03-04] MEDS: THIAMINE HCL 100 MG TABLET (FP) PO SCH (21:52)
[2017-03-04] MEDS: traZODone HCL 50 MG TABLET (FP) PO SCH (21:52)
[2017-03-04] MEDS: diphenhydrAMINE HCL 50 MG CAPSULE PO PRN (21:53)
[2017-03-05] MEDS: ACAMPROSATE CALCIUM 333 MG TABLET.DR PO SCH ×3 (06:40→21:51)
[2017-03-05] MEDS: ESCITALOPRAM OXALATE 10 MG TABLET (FP) PO SCH (11:02)
[2017-03-05] MEDS: PRENATAL VITAMINS W/ FOLIC ACID TABLET (FP) PO SCH (11:02)
[2017-03-05] MEDS: hydrOXYzine PAMOATE 50 MG CAPSULE (FP) PO PRN (11:03)
[2017-03-05] MEDS: CHLORHEXIDINE GLUCONATE 0.12% 15ML CUP MM SCH ×2 (11:04→21:52)
[2017-03-05] MEDS ORDERED: PT OWN MED DRAWER 7, Y5N ONE (11:10)
[2017-03-05] MEDS: THIAMINE HCL 100 MG TABLET (FP) PO SCH (21:49)
[2017-03-05] MEDS: traZODone HCL 50 MG TABLET (FP) PO SCH (21:50)
[2017-03-05] MEDS: diphenhydrAMINE HCL 50 MG CAPSULE PO PRN (21:51)
[2017-03-06] MEDS: ACAMPROSATE CALCIUM 333 MG TABLET.DR PO SCH (06:40)
[2017-03-06 07:10] VITALS: BP 130/86; PULSE 73; TEMP 98.3
[2017-03-06] MEDS ORDERED: PT OWN MED DRAWER 7, Y5N ONE (09:06)
--- NOTE | 2017-03-06 10:01 | PN ---
[facility] Progress Note Note: Patient completed this program today .she has met her treatment goals and will continue to address her issues on outpatient basis.Patient will continue current medications as per plan.scripts for 30 days supply provided.Patient is stable for for discharge today.
[2017-03-06] MEDS: ESCITALOPRAM OXALATE 10 MG TABLET (FP) PO SCH (10:49)
[2017-03-06] MEDS: PRENATAL VITAMINS W/ FOLIC ACID TABLET (FP) PO SCH (10:50)
[2017-03-06] MEDS: CHLORHEXIDINE GLUCONATE 0.12% 15ML CUP MM SCH (10:50)
== END 2017-03-06 10:55 | disposition home or self-care (01) | DRG 772 ==
LOC: YASAS 12:42 → Y3E 12:43
PROVIDERS: ADMIT Psychiatry & Neurology Psychiatry; ATTEND Psychiatry & Neurology Psychiatry
PROC: HZ42ZZZ Group Counseling for Substance Abuse Treatment, Cognitive-Behavioral (ICD-10-PCS; principal; 2017-02-09)
DX: F10.20 Alcohol dependence, uncomplicated (principal); F10.24 Alcohol dependence with alcohol-induced mood disorder; F32.9 Major depressive disorder, single episode, unspecified; F41.1 Generalized anxiety disorder; J02.9 Acute pharyngitis, unspecified; G47.00 Insomnia, unspecified
CPT/HCPCS: 36415; 87389